=== PATIENT | male | born 1990 | race Two or more races ===

== ENCOUNTER 2016-10-05 05:17 | Emergency (ER) | payer SELFPAY ==
[~2016-10-05] VITALS: Ht 175.3 cm; Wt 72.6 kg
[2016-10-05 06:59] VITALS: BP 146/88
[2016-10-05] MEDS ORDERED: SODIUM CHLORIDE 0.9% 1,000 ML IV ONE (07:07)
[2016-10-05] MEDS ORDERED: ONDANSETRON HCL 4 MG/2 ML VIAL IV ONE (08:00)
[2016-10-05] MEDS ORDERED: MORPHINE SULF INJ 2 MG/ML SYRINGE 1ML IV ONE (08:00)
== END 2016-10-05 09:32 | disposition home or self-care (01) ==
LOC: ER 05:17
DX: R51 Headache (principal); R53.1 Weakness; M25.512 Pain in left shoulder; M25.511 Pain in right shoulder; M54.2 Cervicalgia; R07.89 Other chest pain; V49.49XA Driver injured in collision with other motor vehicles in traffic accident, initial encounter; Y93.89 Activity, other specified; Y99.8 Other external cause status; Y92.410 Unspecified street and highway as the place of occurrence of the external cause
CPT/HCPCS: 70450; 71250; 72125; 73120; 73552; 74176; 93005; 96361; 96374; 96375; 99284; J2270; J2405; J7030